=== PATIENT | female | born 1950 | race Caucasian/White ===

== ENCOUNTER 2019-08-27 20:41 | Emergency (ER) | payer SELFPAY ==
[~2019-08-27] VITALS: Ht 167.6 cm; Wt 59.4 kg
[2019-08-27 20:47] VITALS: BP 154/78
[2019-08-27] MEDS ORDERED: ALBUTEROL SULFATE/IPRATROPIU 3 ML SOL IH ONE (20:49)
[2019-08-27] MEDS ORDERED: IPRATROPIUM 0.02% 0.5 MG/2.5 ML NEBU INH ONE (20:55)
[2019-08-27] MEDS ORDERED: methylPREDNISolone SS 125 MG in WATER STERILE 2 ML IVP ONE (20:55)
[2019-08-27] MEDS ORDERED: MAG SULF 2000 MG/WATER PREMIX 50 ML IV ONE (20:55)
[2019-08-27] MEDS ORDERED: ALBUTEROL 0.083% 2.5 MG/3 ML NEBU INH ONE (20:55)
[2019-08-27] MEDS ORDERED: NACL 0.9% 2,100 ML IV ONE (20:55)
[2019-08-27] MEDS ORDERED: methylPREDNISolone SS 125 MG/2 ML VIAL ONE (21:06)
[2019-08-27] MEDS ORDERED: WATER STERILE 10 ML MC ONE (21:06)
[2019-08-27] MEDS ORDERED: SPIMDI INH (22:32)
[2019-08-27] MEDS ORDERED: LISI-420 PO (22:32)
[2019-08-27] MEDS ORDERED: FLUT1DSK IH (22:32)
[2019-08-27] MEDS ORDERED: PRON INH (22:32)
[2019-08-27] MEDS ORDERED: ALBU3SOL83 IH (22:32)
[2019-08-27] MEDS ORDERED: SYN.1 PO (22:32)
[2019-08-27] MEDS ORDERED: AMLO10TA4 PO (22:32)
[2019-08-27] MEDS ORDERED: ATOR10TA PO (22:32)
[2019-08-27] MEDS ORDERED: ALPR0.5T2 PO (22:32)
[2019-08-27 22:57] LABS: BASOPHILS # (AUTO) 0.1 K/uL (0.00-0.22); BASOPHILS % (AUTO) 1.3 % (0.0-2.0); EOSINOPHILS # (AUTO) 0.3 K/uL (0-0.4); EOSINOPHILS % (AUTO) 5.2 % (0.0-4.0); HEMATOCRIT 38.3 % (36-48); HEMOGLOBIN 12.7 g/dL (12.0-16.0); LYMPHOCYTES % (AUTO) 39.5 % (20.5-51.1); MEAN CORPUSCULAR HEMOGLOBIN 29 pg (27-31); MEAN CORPUSCULAR HGB CONC 33 g/dL (33-37); MEAN CORPUSCULAR VOLUME 88.2 fL (80-94); MONOCYTES # (AUTO) 0.4 K/uL (0.8-1.0); NEUTROPHILS # (AUTO) 2.4 K/uL (1.8-7.7); PLATELET COUNT (AUTO) 294 K/uL (140-450); RED BLOOD CELL COUNT(AUTO) 4.34 MIL/uL (4.20-5.40); RED CELL DISTRIBUTION WIDTH 15.8 % (11.6-13.7)
[2019-08-27 23:05] VITALS: BP 120/63
[2019-08-27 23:07] LABS: ALBUMIN 3.8 g/dL (3.4-5.0); CARBON DIOXIDE 26.2 mmol/L (21-32); CREATININE 0.8 mg/dL (0.6-1.3); POTASSIUM 4.2 mmol/L (3.5-5.1); TOTAL BILIRUBIN 0.2 mg/dL (0.0-1.0)
== END 2019-08-27 23:48 | disposition left against medical advice (07) ==
LOC: MED 20:41
DX: J44.1 Chronic obstructive pulmonary disease with (acute) exacerbation (principal); F17.200 Nicotine dependence, unspecified, uncomplicated; Z79.899 Other long term (current) drug therapy
CPT/HCPCS: 36415; 71045; 80053; 83605; 85025; 87040; 96365; 96366; 96375; 99291; J2930; J3475; Q0092; 99285; J7030